=== PATIENT | female | born 1975 | race Caucasian/White ===

== ENCOUNTER 2020-01-13 20:50 | Emergency (ER) | payer SELFPAY ==
[2020-01-13] MEDS ORDERED: Magnesium 2 GM/50 ML BAG (IN WATER) ONE (21:42)
[2020-01-13] MEDS ORDERED: Metoclopramide HCl 10 MG/2 ML VIAL ONE (22:15)
[2020-01-13] MEDS ORDERED: Ketorolac Tromethamine 30 MG/ML VIAL ONE (22:15)
[2020-01-13] MEDS ORDERED: diphenhydrAMINE 50 MG/ML VIAL ONE (22:15)
== END 2020-01-13 23:23 | disposition home or self-care (01) ==
LOC: BURERS 20:50
DX: G43.829 Menstrual migraine, not intractable, without status migrainosus (principal); I10 Essential (primary) hypertension; F17.210 Nicotine dependence, cigarettes, uncomplicated
CPT/HCPCS: 96365; 96375; J1200; J1885; J2765; J3475